=== PATIENT | female | born 1990 | race Caucasian/White ===

== ENCOUNTER → 2020-01-17 17:35 | Observation (INO) | END | disposition home or self-care (01) | LOC: 1NENULAB | PROVIDERS: ADMIT Obstetrics & Gynecology; ATTEND Obstetrics & Gynecology ==

== ENCOUNTER 2020-01-24 16:29 | Inpatient (IN) ==
[2020-01-24 12:44] LABS: Basophils % 0.1 %; Eosinophils # 0.1 K/mcL (0.0-0.6); Eosinophils % 0.7 %; Hematocrit 38.8 % (35.3-44.9); Hemoglobin 12.9 g/dL (11.5-15.4); Immature Granulocytes % 0.5 % (0-4); Lymphocytes # 1.6 K/mcL (0.6-4.6); Lymphocytes % 19.5 %; Mean Corpuscular HGB Conc 33.2 g/dL (31.6-35.5); Mean Corpuscular Hemoglobin 30.4 pg (28.0-33.3); Mean Corpuscular Volume 91.3 fL (83.0-100.0); Mean Platelet Volume 12.5 fL (9.4-12.4); Monocytes # 0.5 K/mcL (0.0-1.3); Monocytes % 6.2 %; Neutrophils # 5.9 K/mcL (1.6-8.9); Platelet Count 190 K/mcL (140-400); Red Blood Count 4.25 M/mcL (3.82-4.97); Red Cell Distribution Width 12.2 % (11.5-14.5); White Blood Count 8.1 K/mcL (4.3-11.1)
[2020-01-24 12:51] LABS: Protein/Creatinine Ratio,Urine 0.08 mg/mg (0.00-0.20)
[2020-01-24 13:02] LABS: Alanine Aminotransferase 17 Units/L (7-52); Aspartate Amino Transferase 19 Units/L (13-39); BUN/Creatinine Ratio 11 (6-26); Blood Urea Nitrogen 8 mg/dL (6-20); Lactate Dehydrogenase 134 Units/L (140-271); Uric Acid 7.5 mg/dL (2.3-7.6); eGFR For African Americans > 60 (> 60); eGFR For Non-African Americans > 60 (> 60)
[~2020-01-24 16:29] MED LIST: Azithromycin 500 MG in 0.9 % Sodium Chloride 250 ML IVPB ONE; EPHEDrine 50 MG/ML VIAL IVP PRN; Epidural Premix (fent/bupiv) 110 ML EP SCH; Famotidine 20 MG/2 ML VIAL IVP PRN; Metoclopramide 10 MG/2 ML VIAL IVP PRN; Naloxone 0.4 MG/ML INJ IVP PRN; miSOPROStoL 25 MCG TABLET VG PRN
[2020-01-24] MEDS: Ringers Solution, Lactated 1,000 ML IVC SCH (18:14)
[2020-01-24] MEDS: Clindamycin 900 MG/50 ML 900 MG/50 ML IV.SOLN IVPB SCH (18:23)
[2020-01-24] MEDS ORDERED: Morphine Sulfate 2 MG/ML SYRINGE SQ ONE (19:11)
[2020-01-24] MEDS ORDERED: Morphine Sulfate 2 MG/ML SYRINGE IVP PRN (19:11)
[2020-01-24] MEDS ORDERED: Oxytocin 20 units/ LR 1000 mL 20 UNIT/1,000 ML BAG IVC SCH (22:15)
[2020-01-25] MEDS ORDERED: Clindamycin 900 MG/50 ML 900 MG/50 ML IV.SOLN IVPB SCH
[2020-01-25] MEDS: Clindamycin 900 MG/50 ML 900 MG/50 ML IV.SOLN IVPB SCH ×2 (02:47→10:28)
[2020-01-25] MEDS ORDERED: Ondansetron 4 MG/2 ML VIAL IVP ONE (09:15)
[2020-01-25] MEDS: Ringers Solution, Lactated 1,000 ML IVC SCH (10:34)
[2020-01-25] MEDS ORDERED: Ropivacaine/PF 0.2% 20 ML VIAL EP ONE (12:42)
[2020-01-25] MEDS ORDERED: EPHEDrine 50 MG/ML VIAL IVP PRN (12:42)
[2020-01-25] MEDS ORDERED: *HR* FentaNYL (PF) 100 MCG/2 ML VIAL EP ONE (12:42)
[2020-01-25] MEDS ORDERED: Lidocaine 1% 20 ML MDV ONE (17:04)
[2020-01-25] MEDS ORDERED: Benzocaine/Menthol 56 GM AEROSOL SPRAY TP PRN (20:53)
[2020-01-25] MEDS ORDERED: Oxytocin 20 units/ LR 1000 mL 20 UNIT/1,000 ML BAG IVC SCH (20:53)
[2020-01-25] MEDS ORDERED: Lanolin 7 G OINT...G. TP PRN (20:53)
[2020-01-25] MEDS: Ibuprofen 600 MG TABLET PO PRN (22:23)
[2020-01-26] MEDS: Acetaminophen 325 MG TABLET PO PRN ×2 (04:04→19:47)
[2020-01-26] MEDS: Prenatal Vit/FA 1 EACH TABLET PO SCH (07:50)
[2020-01-26] MEDS: Ibuprofen 600 MG TABLET PO PRN (07:50)
[2020-01-26 08:04] LABS: Basophils % 0.2 %; Eosinophils # 0.1 K/mcL (0.0-0.6); Eosinophils % 0.5 %; Hematocrit 34.6 % (35.3-44.9); Hemoglobin 11.7 g/dL (11.5-15.4); Immature Granulocytes % 0.5 % (0-4); Lymphocytes % 18.1 %; Mean Corpuscular HGB Conc 33.8 g/dL (31.6-35.5); Mean Corpuscular Hemoglobin 31.8 pg (28.0-33.3); Mean Platelet Volume 12.4 fL (9.4-12.4); Monocytes # 0.7 K/mcL (0.0-1.3); Monocytes % 5.9 %; Neutrophils # 8.3 K/mcL (1.6-8.9); Platelet Count 154 K/mcL (140-400); Red Blood Count 3.68 M/mcL (3.82-4.97); Red Cell Distribution Width 12.3 % (11.5-14.5); Segmented Neutrophils % 74.8 %; White Blood Count 11.1 K/mcL (4.3-11.1)
[2020-01-27] MEDS: Ibuprofen 600 MG TABLET PO PRN (08:22)
[2020-01-27] MEDS: Prenatal Vit/FA 1 EACH TABLET PO SCH (08:23)
[2020-01-28 08:14] VITALS: BP 125/79
== END 2020-01-27 14:05 | disposition home or self-care (01) | DRG 560 ==
LOC: 1NENULAB → 1NENUOBS 01-25 20:38
PROVIDERS: ADMIT Obstetrics & Gynecology; ATTEND Obstetrics & Gynecology